=== PATIENT | male | born 2005 | race Two or more races ===

== ENCOUNTER 2024-11-18 14:20 | Outpatient (CLI) | payer BC ==
[2024-11-18 14:41] LABS: Hematocrit 47.4 % (41.0-53.0); Hemoglobin 15.6 g/dL (13.5-17.5); Mean Corpuscular Hemoglobin 27.0 pg (28.0-32.0); Mean Corpuscular Volume 82.3 fL (80.0-100.0); Nucleated Red Blood Cells % 0.0 %
[2024-11-18 15:39] LABS: Urine Protein, UAD Negative (Negative)
[2024-11-18 16:30] LABS: Alanine Aminotransferase 36 U/L (7-40); Albumin 4.8 g/dL (3.2-4.8); Alkaline Phosphatase 98 U/L (46-116); Anion Gap 8 (5-15); BUN/Creatinine Ratio 6.5 (10.0-20.0); Bilirubin, Total 1.0 mg/dL (0.2-1.0); Blood Urea Nitrogen 8 mg/dL (9-23); Calcium 10.0 mg/dL (8.7-10.4); Carbon Dioxide 27 mmol/L (20-31); Chloride 105 mmol/L (98-107); Cholesterol 126 mg/dL (< 200); Glucose 83 mg/dL (74-106); HDL Cholesterol 49 mg/dL (40-59); Potassium 4.1 mmol/L (3.5-5.1); Sodium 140 mmol/L (136-145); Total Protein 7.7 g/dL (5.7-8.2); Triglycerides 47 mg/dL (< 150)
== END 2024-11-18 17:00 | disposition home or self-care (01) ==
LOC: LAB 14:20
PROVIDERS: ATTEND Nurse Practitioner Family
DX: I10 Essential (primary) hypertension (principal); Z00.01 Encounter for general adult medical examination with abnormal findings
CPT/HCPCS: 36415; 80053; 80061; 81001; 84443; 85025